=== PATIENT | male | born 1985 | race Caucasian/White ===

== ENCOUNTER 2020-09-29 01:14 | Emergency (ER) | payer SELFPAY ==
[~2020-09-29] VITALS: Ht 182.8 cm; Wt 68.0 kg
[~2020-09-29 01:14] MED LIST: VICODIN 500 MG-1 TAB PO
[2020-09-29 01:24] VITALS: BP 148/81
== END 2020-09-29 01:58 | disposition home or self-care (01) ==
LOC: ED 01:14
DX: S00.411A Abrasion of right ear, initial encounter (principal); T16.1XXA Foreign body in right ear, initial encounter; X58.XXXA Exposure to other specified factors, initial encounter; Y93.89 Activity, other specified; Y92.89 Other specified places as the place of occurrence of the external cause; Y99.8 Other external cause status